=== PATIENT | female | born 1970 | race Hispanic/Latino ===

== ENCOUNTER 2024-11-03 14:18 | Emergency (ER) | payer BC ==
[~2024-11-03] VITALS: Ht 152.4 cm; Wt 70.8 kg
[2024-11-03] MEDS ORDERED: PREMARIN30 GM PV (14:25)
[2024-11-03] MEDS ORDERED: PREDNISONE20 MG PO (14:26)
[2024-11-03] MEDS ORDERED: ASPIRIN 81 MG CHEW PO ONE (14:30)
[2024-11-03 14:38] LABS: BASOPHILS 0.2 % (0-2); HEMATOCRIT 32.4 % (35.0-50.0); HEMOGLOBIN 10.5 g/dL (12.0-18.0); LYMPHOCYTES 13.6 % (24-44); MCH 27.2 (27-36); MCHC 32.5 g/dl (30-36); MCV 83.5 fl (81-99); NEUTROPHILS 84.2 % (39-80); PLATELET COUNT 363 K/uL (140-440); RBC 3.88 M/ul (4.3-5.7); RDW 17.7 (10.5-15.0)
[2024-11-03 15:04] LABS: ALBUMIN 3.4 g/dL (3.4-5.0); ALBUMIN/GLOBULIN RATIO 0.89 (1.1-2.4); ALKALINE PHOSPHATASE 68 U/L (46-116); ALT (SGPT) 25 U/L (14-59); ANION GAP 13.1 (7-21); AST (SGOT) 6 U/L (15-37); BILIRUBIN, TOTAL 0.4 ng/dL (0.2-1.0); BUN/CREATININE RATIO 24.35 (6.0-28.6); CALCIUM 8.2 mg/dL (8.5-10.1); CARBON DIOXIDE 24 mmol/L (21-32); CHLORIDE 106 mmol/L (98-107); CREATININE, SERUM 0.78 mg/dL (0.55-1.02); GLOMERULAR FILTRATION RATE,EST 90 mL/min (>60); POTASSIUM 4.1 mmol/L (3.5-5.1); PROTEIN, TOTAL 7.2 g/dL (6.4-8.2); UREA NITROGEN 19 mg/dL (7-18)
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
[2024-11-03 17:02] VITALS: BP 98/59
--- NOTE | 2024-11-03 22:23 | EKG ---
[facility] [address] [place] [address] Signed Sinus rhythm with premature atrial complexes Otherwise normal ECG No previous ECGs available Confirmed by Domitila Shaffer MD () on 11/03/2024 10:23:26 PM Electronically Signed By: DOMITILA SHAFFER MD 11/03/242222 PATIENT NAME: ANA LUISA NAJERA Electrocardiogram DATE OF : 70 PHYSICIAN: DOMITILA SHAFFER MD REPORT #: [id number] REPORT IS CONFIDENTIAL AND NOT TO BE RELEASED WITHOUT AUTHORIZATION
== END 2024-11-03 17:03 | disposition home or self-care (01) ==
LOC: ED 14:18
PROVIDERS: Emergency Medicine
DX: R07.89 Other chest pain (principal); Z88.8 Allergy status to other drugs, medicaments and biological substances; Z79.890 Hormone replacement therapy; Z79.52 Long term (current) use of systemic steroids
CPT/HCPCS: 36415; 71045; 80053; 83735; 84484; 85025; 85379; 93005; 93010; 99285-25; A9270